=== PATIENT | female | born 1950 | race Caucasian/White ===

== ENCOUNTER 2023-10-02 15:14 | Outpatient (CLI) | payer MEDICARE, OTHER ==
--- NOTE | 2023-10-02 16:15 | XRAY Report ---
PROCEDURE: Wrist 4 View LT INDICATIONS: LEFT WRIST SPRAIN TECHNIQUE: 3 views of the wrist were acquired. COMPARISON: None. FINDINGS: Bones: Avulsion fracture of the extensor tendon insertion on the dorsal side of the DIP joint of the third finger with displacement Soft tissues: No suspicious soft tissue calcifications or masses. IMPRESSION: Displaced avulsion fracture at the extensor tendon insertion into the distal phalanx of t he middle finger Reviewed by: Pola Kemp on 10/02/2023 4:14 PM PST Approved by: Pola Kemp on 10/02/2023 4:14 PM PST Station ID: [id number]
--- NOTE | 2023-10-02 16:17 | XRAY Report ---
PROCEDURE: Sacrum/Coccyx INDICATIONS: LEFT WRIST SPRAIN,COCCYX PAIN, SPRAIN LEFT MIDDLE FINGER TECHNIQUE: 2 views of the sacrum and coccyx acquired. COMPARISON: None. FINDINGS: Bones: No fractures or dislocations. No suspicious bony lesions. Soft tissues: Visualized bowel gas pattern is normal. No suspicious soft tissue densities. IMPRESSION: No acute bony abnormality. Reviewed by: Pola Kemp on 10/02/2023 4:16 PM PST Approved by: Pola Kemp on 10/02/2023 4:16 PM PST Station ID: [id number]
--- NOTE | 2023-10-02 16:20 | XRAY Report ---
PROCEDURE: Finger(s) LT INDICATIONS: LEFT WRIST SPRAIN, COCCYX PAIN, LEFT MIDDLE FINGER SPRAIN TECHNIQUE: 3 views of the wrist were acquired. COMPARISON: None. FINDINGS: Bones: Avulsion fracture of the extensor tendon insertion on the dorsal side of the DIP joint of the third finger with displacement Soft tissues: No suspicious soft tissue calcifications or masses. IMPRESSION: Displaced avulsion fracture at the extensor tendon insertion into the distal phalanx of t he middle finger Reviewed by: Pola Kemp on 10/02/2023 4:18 PM PST Approved by: Pola Kemp on 10/02/2023 4:18 PM PST Station ID: [id number]
== END 2023-10-02 15:15 | disposition home or self-care (01) ==
LOC: DI 15:14
PROVIDERS: ATTEND Family Medicine
DX: S63.502A Unspecified sprain of left wrist, initial encounter (principal); M53.3 Sacrococcygeal disorders, not elsewhere classified; S62.633A Displaced fracture of distal phalanx of left middle finger, initial encounter for closed fracture

== ENCOUNTER 2023-10-13 08:00 | Outpatient (CLI) | payer MEDICARE, OTHER ==
--- NOTE | 2023-10-13 21:06 | XRAY Report ---
PROCEDURE: Finger(s) LT INDICATIONS: LEFT 3RD MIDDLE FINGER PAIN TECHNIQUE: AP hand, 2 views of the middle finger(s) acquired. COMPARISON: None. FINDINGS: Bones: There is a dorsal base of distal phalanx fracture involving a dorsal osteophyte, possibly rep resenting an avulsion fracture. No suspicious bony lesions. Soft tissues: No suspicious soft tissue calcifications or masses. IMPRESSION: Dorsal base of distal phalanx fracture of third finger, involving osteophyte, possibly representing a n avulsion fracture. Reviewed by: Jaime Carty MD on 10/13/2023 9:04 PM PST Approved by: Jaime Carty MD on 10/13/2023 9:04 PM PST Station ID: [id number]
== END 2023-10-13 23:59 | disposition home or self-care (01) ==
LOC: DI.WOS 08:00
PROVIDERS: ATTEND Physician Assistant Surgical
DX: S62.613A Displaced fracture of proximal phalanx of left middle finger, initial encounter for closed fracture (principal); M25.742 Osteophyte, left hand

== ENCOUNTER 2023-12-01 08:00 | Outpatient (CLI) | payer MEDICARE, OTHER ==
--- NOTE | 2023-12-01 13:04 | XRAY Report ---
PROCEDURE: Finger(s) LT INDICATIONS: LEFT 3RD FINGER FRACTURE TECHNIQUE: AP hand, 3 views of the third finger(s) acquired. COMPARISON: X-ray [birth year] 1922 FINDINGS: Bones: Stable alignment with slight interval healing of previous third PIP avulsion. No suspicious b dong lesions. Soft tissues: No suspicious soft tissue calcifications or masses. IMPRESSION: Stable alignment with slight interval healing of previous third PIP avulsion fracture. Reviewed by: Josefina Amador MD on 12/01/2023 1:03 PM [facility] Approved by: Josefina Amador MD on 12/01/2023 1:03 PM [facility] Station ID: [id number]
== END 2023-12-01 23:59 | disposition home or self-care (01) ==
LOC: DI.WOS 08:00
PROVIDERS: ATTEND Physician Assistant Surgical
DX: S62.633D Displaced fracture of distal phalanx of left middle finger, subsequent encounter for fracture with routine healing (principal)

== ENCOUNTER 2024-03-14 16:14 | Observation (INO) | payer MEDICARE, OTHER ==
[2024-03-14] MEDS ORDERED: iohexoL-300 100 ML VIAL ONE (16:23)
[2024-03-14 16:24] LABS: BASOPHILS # (AUTO) 0.1 10^3/uL (0.0-0.1); BASOPHILS % (AUTO) 0.8 %; EOSINOPHILS # (AUTO) 0.3 10^3/uL (0.0-0.7); EOSINOPHILS % (AUTO) 3.4 %; HCT - HEMATOCRIT 38.7 % (37.0-47.0); HGB - HEMOGLOBIN 11.8 g/dL (12.0-16.0); LYMPHOCYTES # (AUTO) 2.2 10^3/uL (1.5-3.5); LYMPHOCYTES % (AUTO) 25.7 %; MEAN CORPUSCULAR HGB CONC 30.5 g/dL (32.0-36.0); MEAN CORPUSCULAR VOLUME 88.6 fL (81.0-99.0); MEAN PLATELET VOLUME 10.1 fL (7.9-10.8); MONOCYTES # (AUTO) 0.8 10^3/uL (0.0-1.0); MONOCYTES % (AUTO) 8.7 %; NEUTROPHILS # (AUTO) 5.3 10^3/uL (1.5-6.6); NEUTROPHILS % (AUTO) 61.1 %; PLT - PLATELET COUNT 291 10^3/uL (130-450); RED BLOOD COUNT 4.37 10^6/uL (4.20-5.40); RED CELL DISTRIBUTION WIDTH 14.5 % (12.0-15.0); WHITE BLOOD COUNT 8.7 x10^3/uL (4.8-10.8)
--- NOTE | 2024-03-14 16:24 | ED Physician Documentation ---
PD HPI FOCAL NEURO - Stated complaint Stated Complaint: CODE STROKE - Chief complaint Chief Complaint: Neuro - History obtained from History obtained from: Patient, EMS - History of Present Illness Timing - onset: How many hours ago (1) Timing - duration: Hours (1) Timing - details: Abrupt onset Weakness: Face, Arm, Hand, Leg, Left Numbness: No: Face, Arm, Hand, Leg, Foot, Right, Left Associated symptoms: No: Headache, Nausea / vomiting, Seizure, Syncope, Fall, Head injury, Chest pain, Neck pain, Back pain, Fever Baseline status: positive: Other (Patient usually has right-sided deficits from her prior stroke.) - Additional information Additional information: Patient is a 73-year-old female who is brought to the emergency department as a "code stroke". She is brought in by EMS. Reportedly she had physical therapy today and when she was walking across the parking lot at about 315 noted that she had left-sided weakness and left-sided facial droop along with slurred speech. She has had a prior stroke in 2019. She states it was a hemorrhagic stroke and had to have surgery. She feels that the symptoms are mildly resolving at this time but still feels like she is not speaking clearly. She states that she takes 10 medications in the morning and 7 medications at night. She does not know the names or what they are for. PD PAST MEDICAL HISTORY - Past Medical History Past Medical History: Yes Cardiovascular: Hypertension, High cholesterol Neuro: CVA - Past Surgical History Past Surgical History: Yes Neuro: Craniotomy - Allergies Allergies/Adverse Reactions: Allergies Allergy/AdvReac Type Severity Reaction Status Date / Time carisoprodol [From Soma] Allergy Hives Verified 03/14/24 16:28 - Living Situation Living Situation: reports: With family Living Arrangement: reports: At home - Social History Does the pt have substance abuse?: No - Family History Family history: reports: Non contributory PD ED PE NORMAL - Vitals Vital signs reviewed: Yes - General General: Alert and oriented X 3, No acute distress - HEENT HEENT: Moist mucous membranes - Neck Neck: Supple, no meningeal sign - Cardiac Cardiac: RRR, Strong equal pulses - Respiratory Respiratory: No respiratory distress, Clear bilaterally - Abdomen Abdomen: Soft, Non tender, Non distended - Derm Derm: Warm and dry - Extremities Extremities: No edema - Neuro Neuro: Alert and oriented X 3 NIHSS - Time Time: 16:15 - Level of Consciousness Level of consciousness: (0) Alert, Keenly responsive LOC Questions: (0) Answers both Q's correct LOC Commands: (0) Performs both correctly - Gaze Best Gaze: (0) Normal - Visual Visual: (0) No loss - Facial Palsy Facial Palsy: (1) Minor paralysis - Motor Arms (both separate) Motor Arm (right): (0) No drift Motor Arm (left): (1) Drift - Motor Legs (both separate) Motor Leg (right): (1) Drift - Limb Ataxia Limb Ataxia: (0) Absent - Sensory Sensory: (0) Normal - Best Language Best Language: (0) No aphasia - Dysarthria Dysarthria: (1) Dyhn-vs-zxxtqitt dysarthria - Extinction and Inattention (formally neg Extinction and inattention: (0) No abnormality Results - Vitals Vitals: Vital Signs - 24 hr 03/14/24 03/14/24 03/14/24 16:18 16:41 16:59 Temperature 36.2 C L Heart Rate 68 62 61 Respiratory 70 H 12 17 Rate Blood Pressure 124/77 112/54 L O2 Saturation 95 98 95 Oxygen O2 Source Room air - EKG (time done) 1623 EKG releavant findings:: EKG personally interpreted by author of this note. Relevant findings are: Rate: Rate (enter#) (61) Rhythm: NSR [place]: Normal Intervals: Normal NH QRS: Normal Ischemia: Normal ST segments - Labs Labs: Laboratory Tests 03/14/24 03/14/24 03/14/24 16:16 16:16 16:16 WBC 8.7 RBC 4.37 Hgb 11.8 L Hct 38.7 MCV 88.6 MCH 27.0 MCHC 30.5 L RDW 14.5 Plt Count 291 MPV 10.1 Neut # (Auto) 5.3 Lymph # (Auto) 2.2 [place] # (Auto) 0.8 Eos # (Auto) 0.3 Baso # (Auto) 0.1 Absolute Nucleated RBC 0.00 Nucleated RBC % 0.0 PT 12.1 INR 1.1 APTT 32.0 Sodium 136 Potassium 4.0 Chloride 101 Carbon Dioxide 29 Anion Gap 6.0 BUN 15 Creatinine 1.0 Estimated GFR (MDRD) 54 L Glucose 115 H POC Whole Bld Glucose Calcium 10.2 Total Bilirubin 0.6 AST 15 ALT 19 Alkaline Phosphatase 146 H Total Protein 6.9 Albumin 4.1 Globulin 2.8 Albumin/Globulin Ratio 1.5 Lipase 28 Urine Color Urine Clarity Urine pH Ur Specific [place] Urine Protein Urine Glucose (UA) Urine Ketones Urine Occult Blood Urine Nitrite Urine Bilirubin Urine Urobilinogen Ur Leukocyte Esterase Ur Microscopic Review Urine Culture Comments 03/14/24 03/14/24 16:40 18:00 WBC RBC Hgb Hct MCV MCH MCHC RDW Plt Count MPV Neut # (Auto) Lymph # (Auto) [place] # (Auto) Eos # (Auto) Baso # (Auto) Absolute Nucleated RBC Nucleated RBC % PT INR APTT Sodium Potassium Chloride Carbon Dioxide Anion Gap BUN Creatinine Estimated GFR (MDRD) Glucose POC Whole Bld Glucose 119 H Calcium Total Bilirubin AST ALT Alkaline Phosphatase Total Protein Albumin Globulin Albumin/Globulin Ratio Lipase Urine Color YELLOW Urine Clarity CLEAR Urine pH 6.5 Ur Specific [place] <=1.005 Urine Protein NEGATIVE Urine Glucose (UA) NEGATIVE Urine Ketones NEGATIVE Urine Occult Blood NEGATIVE Urine Nitrite NEGATIVE Urine Bilirubin NEGATIVE Urine Urobilinogen 0.2 (NORMAL) Ur Leukocyte Esterase NEGATIVE Ur Microscopic Review NOT INDICATED Urine Culture Comments NOT INDICATED - Rads (name of study) head CT Relevant Findings:: Final report received, See rad report CT angio head and neck Relevant Findings:: Final report received, See rad report PD Medical Decision Making - ED course Complexity details: reviewed results, re-evaluated patient, considered differential, d/w patient, d/w cognos consultant ED course: 73-year-old female activated as a code stroke. Symptoms are improving in the emergency department. No acute findings on head CT or CT angiogram of the head and neck. Does have a 50% stenosis of the internal carotid artery. Tele- neurology was consulted. They evaluated the patient do not feel that she is a TNK candidate. I would agree with this that she is rapidly improving. They recommend starting Plavix in addition to her aspirin. Recommend admission to the hospitalist service for further stroke workup. Discussed the case with the nighttime hospitalist, who accepts. This document was made in part using voice recognition software. While efforts are made to proofread this document, sound alike and grammatical errors may occur. Departure - Departure Disposition: ED Place in Observation Clinical Impression: Cerebrovascular accident (CVA) Qualifiers: CVA mechanism: unspecified Qualified Code(s): I63.9 - Cerebral infarction, unspecified Hypertension Qualifiers: Hypertension type: unspecified Qualified Code(s): I10 - Essential (primary) hypertension Diabetes Qualifiers: Diabetes mellitus type: type 2 Diabetes mellitus jail insulin use: without jail use Condition: Stable Discharge Date/Time: 03/14/24 20:07
[2024-03-14 16:36] LABS: ALBUMIN 4.1 g/dL (3.2-5.5); ALBUMIN/GLOBULIN RATIO 1.5 (1.0-2.2); BILIRUBIN,TOTAL 0.6 mg/dL (0.2-1.0); CALCIUM 10.2 mg/dL (8.5-10.3); TOTAL PROTEIN 6.9 g/dL (6.4-8.9)
[2024-03-14 17:01] LABS: INR 1.1 (0.8-1.2); PT - PROTHROMBIN TIME 12.1 secs (9.9-12.6)
--- NOTE | 2024-03-14 17:06 | CT Report ---
PROCEDURE: Head W/O Stroke Protocol INDICATIONS: L sided weakness, h/o hemorrhagic stroke TECHNIQUE: Noncontrast 4.5 mm thick angled axial sections acquired from the foramen magnum to the vertex, with c oronal reformats. For radiation dose reduction, the following was used: automated exposure control, adjustment of mA and/or kV according to patient size. COMPARISON: None. FINDINGS: Image quality: Excellent. CSF spaces: Basal cisterns are patent. No extra-axial fluid collections. Ventricles are normal in size and shape. Brain: No midline shift. No intracranial masses or hemorrhage. [place]-white matter interface is norm al. Intracranial carotid calcifications. Age-related volume loss and moderate to severe small vessel ischemic change. Right temporal encephalomalacia. Skull and face: Remote right frontotemporal craniotomy. Calvarium and visualized facial bones are in tact, without suspicious lesions. Sinuses: Visualized sinuses and mastoids are clear. IMPRESSION: 1. No acute intracranial abnormality. 2. Remote frontotemporal craniotomy on the right. There is encephalomalacia in the right temporal lob e. 3. Age-related volume loss and small vessel ischemic change. Above discussed with Zana Krishnan MD at the time of dictation on 03/14/2024 at 1504 hours. This study fulfills neurological imaging criteria for inclusion or exclusion of acute stroke therapie s based on available published neurological imaging guidelines. Reviewed by: Jaime Carty MD on 03/14/2024 5:05 PM PDT Approved by: Jaime Carty MD on 03/14/2024 5:05 PM PDT Station ID: [id number]
[2024-03-14] MEDS: iohexoL-300 100 ML VIAL IVP ONE (17:19)
--- NOTE | 2024-03-14 17:20 | CT Report ---
PROCEDURE: Angio Head/Neck INDICATIONS: L sided weakness, h/o hemorrhagic stroke TECHNIQUE: After the administration of intravenous contrast, 1 mm thick sections acquired from the aortic arch t hrough the [place] of [place]. 3-dimensional snyyqzz-faittseiu-tbzqanubpr (MIP) and/or volume renderin g reformats were acquired of the central intracranial vasculature and neck separately. For radiation dose reduction, the following was used: automated exposure control, adjustment of mA and/or kV acco rding to patient size. CONTRAST: 80ml [id number] COMPARISON: CT head from the same date. FINDINGS: Image quality: Diagnostic. HEAD CT: CSF Spaces: Basal cisterns are patent. No extra-axial fluid collections. Ventricles are normal in size and shape. Brain: As seen on the accompanying CT, there is remote right frontotemporal craniotomy and temporal e ncephalomalacia. There is age-related volume loss and small vessel ischemic change. Skull and face: Calvarium and visualized facial bones appear intact, without suspicious lesions. Sinuses: Visualized sinuses and mastoids are clear. HEAD CT ANGIOGRAPHY: Anterior circulation: Intracranial internal carotid arteries are normal in size and flow. The flow within the paired anterior cerebral arteries is normal and symmetric. The flow within the middle cer ebral arteries is normal and symmetric. The anterior communicating artery is seen. No aneurysms are seen. Posterior circulation: Visualized portions of the vertebral arteries demonstrate normal caliber, and join to form a normal appearing basilar artery. Flow within the posterior cerebral arteries is norm al and symmetric. No aneurysms are seen. NECK CT ANGIOGRAPHY: Carotid system: The great vessels demonstrate a conventional anatomy as they arise from the aortic a [facility]. The origins of the common carotid arteries appear patent. The common carotid arteries demonstr ate normal caliber and courses. The bifurcation regions are both widely patent. There is a calcified stenosis of the proximal left internal carotid artery which is likely in the knee of 50% or greater. There is mild stenotic disease of the proximal right internal carotid artery. There is medial deviat ion of the cervical carotids at the level of C2-C3. Posterior circulation: The origins of the verteb ral arteries both appear widely patent. The more superior extracranial portions of both vertebral ar teries also demonstrate normal courses and calibers. They join to form a normal appearing basilar ar [place]. Soft tissues: Visualized neck soft tissues demonstrate no suspicious abnormalities. There are innum erable prominent bilateral cervical lymph nodes. No individual lymph nodes are clearly of size to ind icate malignancy. However, a number of these lymph nodes are rounded. There are lesions present in th e right parotid which, given the appearance of lymph nodes likely represents parotid lymphadenopathy as well. Bones: No suspicious bony lesions. Visualized cervical spine appears normally aligned. IMPRESSION: 1. No significant intracranial arterial abnormality noted. 2. A proximal left internal carotid artery stenosis is likely 50% or greater. There is no significant proximal right internal carotid artery stenosis. The cervical carotids are tortuous, and medially de viated at the level of C2-C3. 3. Extensive cervical adenopathy, nonspecific. However, consider reactive adenopathy versus possible lymphoma. Comment: Consider nonemergent imaging of the chest, abdomen, and pelvis to evaluate lymphadenopathy. The estimate of stenosis included in the report of the imaging study was calculated using the NASCET method Reviewed by: Jaime Carty MD on 03/14/2024 5:19 PM PDT Approved by: Jaime Carty MD on 03/14/2024 5:19 PM PDT Station ID: [id number]
[2024-03-14] MEDS: CLOPIDOGREL 75 MG TABLET PO STA (17:58)
[2024-03-14 18:03] LABS: BILIRUBIN,URINE NEGATIVE (NEGATIVE); GLUCOSE, URINE (UA) NEGATIVE (NEGATIVE); KETONES,URINE (UA) NEGATIVE (NEGATIVE); LEUKOCYTE ESTERASE, URINE NEGATIVE (NEGATIVE); NITRITE,URINE NEGATIVE (NEGATIVE); OCCULT BLOOD,URINE NEGATIVE (NEGATIVE); PH,URINE 6.5 PH (5.0-7.5); PROTEIN,URINE NEGATIVE (NEGATIVE); UROBILINOGEN,URINE 0.2 (NORMAL) E.U./dL (NORMAL)
[2024-03-14 18:04] LABS: CLARITY,URINE CLEAR (CLEAR)
[2024-03-14] MEDS ORDERED: LABETALOL 20 MG/4 ML SYRINGE IVP PRN (19:18)
[2024-03-14] MEDS ORDERED: ACETAMINOPHEN 325 MG TABLET PO PRN (19:23)
[2024-03-14] MEDS ORDERED: HYDROcod/ACETAM 5/325 MG TABLET PO PRN (19:23)
[2024-03-14] MEDS ORDERED: SODIUM CHLORIDE FLUSH 0.9% 10 ML SYRINGE IVP PRN (19:23)
[2024-03-14] MEDS ORDERED: ONDANSETRON 4 MG/2 ML VIAL IVP PRN (19:23)
[2024-03-14 20:05] LABS: BASOPHILS # (AUTO) 0.1 10^3/uL (0.0-0.1); BASOPHILS % (AUTO) 0.9 %; EOSINOPHILS # (AUTO) 0.4 10^3/uL (0.0-0.7); EOSINOPHILS % (AUTO) 3.8 %; HCT - HEMATOCRIT 37.6 % (37.0-47.0); HGB - HEMOGLOBIN 11.7 g/dL (12.0-16.0); LYMPHOCYTES # (AUTO) 2.3 10^3/uL (1.5-3.5); LYMPHOCYTES % (AUTO) 25.1 %; MEAN CORPUSCULAR HEMOGLOBIN 27.7 pg (27.0-31.0); MEAN CORPUSCULAR HGB CONC 31.1 g/dL (32.0-36.0); MEAN CORPUSCULAR VOLUME 88.9 fL (81.0-99.0); MEAN PLATELET VOLUME 10.2 fL (7.9-10.8); MONOCYTES # (AUTO) 0.8 10^3/uL (0.0-1.0); MONOCYTES % (AUTO) 9.1 %; NEUTROPHILS # (AUTO) 5.6 10^3/uL (1.5-6.6); NEUTROPHILS % (AUTO) 60.9 %; PLT - PLATELET COUNT 261 10^3/uL (130-450); RED BLOOD COUNT 4.23 10^6/uL (4.20-5.40); RED CELL DISTRIBUTION WIDTH 14.7 % (12.0-15.0); WHITE BLOOD COUNT 9.2 x10^3/uL (4.8-10.8)
[2024-03-14 20:11] LABS: INR 1.1 (0.8-1.2); PT - PROTHROMBIN TIME 11.4 secs (9.9-12.6)
--- NOTE | 2024-03-14 20:13 | HISTORY & PHYSICAL EXAMINATION ---
Chief Complaint - Chief Complaint Chief Complaint: Left sided weakness History of Present Illness - Admitted From Admitted From:: ED - History Obtained From History obtained from: Patient, and daughter at bedside Exam Limitations: via telehealth live video - History of Present Illness HPI Comment/Other: Mrs. Lewis is a 73 yo W with a history of hypertension, diabetes type 2, hemorrhagic stroke with residual short term memory loss, chronic back pain with neurostimulator implant. Patient was leaving physical therapy on the day of presentation. noted she was speaking in jibberish. she also had right facial drooping. Her left arm was immobile. He took her to the urgent care adjacent to the PT clinic. she was not able to bare weight on her left leg due to weakness. Upon arrival to the ED by EMS, symptoms had started to resolved. she had regain 80% of her strength back in her extremities and her speech was at baseline. she did have residual facial drooping. CT head was negative for hemorrhage, no evidence of ischemia. CTA was negative for large vessel occlusion. Teleneurology was consulted and recommended Mrs. Lewis be admitted for further stroke rule out. Due to continue improvement of symptoms she was not a tPA candidate. During my evaluation. NIHSS was 1. GCS 15. vitals signs stable. This visit was performed using real-time tele-health tools including live video for gyic-tj-cots visit. In addition to patient, her and her daughter were present during the evaluation. she provided consent to proceed with this tele-health visit and gave me permission to do so with her family members present. 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 Did not require utilization of equipment for mobility assistance. Exam - Vital Signs Reviewed Vital Signs: Yes Vital Signs: Vital Signs x48h Temp Pulse Resp BP Pulse Ox 03/14/24 19:54 59 L 18 144/93 H 99 03/14/24 16:59 61 17 112/54 L 95 03/14/24 16:41 62 12 98 03/14/24 16:18 36.2 C L 68 70 H 124/77 95 - Physical Exam General Appearance: positive: No acute distress, Alert Eyes Bilateral: positive: Normal inspection, PERRL Respiratory: positive: No respiratory distress, Breath sounds nml Cardiovascular: positive: Regular rate & rhythm, No murmur, No gallop Skin: positive: Color nml, No rash Extremities: positive: Non-tender, Full ROM, Nml appearance Neurologic/Psychiatric: positive: Oriented x3, Sensation nml, Mood/affect nml, Weakness, Facial droop. negative: Sensory loss, Slurred/abnml speech Conclusion/Plan - Problem List (1) Cerebrovascular accident (CVA) Conclusion/Plan: -Stroke vs TIA. symptoms improved. -NIHSS 1 on initial evalaution, continue with neurochecks q4h -CT,CTA reviewed independently, proceed with ECHO w/ bubble and MRI w/o contrast in the AM -PT/OT/ST consulted and pending -teleneurology consulted -continue with aspirin 81mg, initiate plavix 75mg daily, atorvastatin 80mg daily -fall and aspiration precautions as needed Qualifiers: CVA mechanism: unspecified Qualified Code(s): I63.9 - Cerebral infarction, unspecified (2) Hypertension Conclusion/Plan: -will review home regimen, and resume as tolerated -as needed IV labetolol for refractory hypertension of SBP >220 (3) Diabetes Conclusion/Plan: -hold home metformin, will resume upon discharge -continue to monitor with serial acuchecks and sliding scale coverage as needed. ACHS. Qualifiers: Diabetes mellitus type: type 2 Diabetes mellitus manager terminal insulin use: without manager terminal use - Lab Results Fish Bones: 03/14/24 16:16 03/14/24 16:16 - Diagnostic Imaging Results Diagnostic Imaging Results: positive: Final report reviewed Core Measures - Anticipated LOS I expect patient to be DC'd or transferred within 96 hours.: Yes - DVT/VTE - Prophylaxis VTE/DVT Device ordered at admit?: Yes Telemedicine Consult Details - Provider Location & Consult Time Telemedicine consultation conducted via videoconferencing?: Yes
[2024-03-14] MEDS: INSULIN REGULAR HUMAN 300 UNIT/3 ML VIAL SUBQ SCH (21:38)
[2024-03-14] MEDS: ATORVASTATIN 40 MG TABLET PO SCH (21:39)
[2024-03-15] MEDS: SODIUM CHLORIDE FLUSH 0.9% 10 ML SYRINGE IVP SCH (01:39)
[2024-03-15] MEDS: CLOPIDOGREL 75 MG TABLET PO SCH (08:54)
[2024-03-15] MEDS: ASPIRIN CHEW 81 MG TABLET PO SCH (08:54)
--- NOTE | 2024-03-15 10:39 | PHARMACY PROGRESS NOTE ---
- Best Possible Medication History Admit Date and Time: 03/14/241922 Processed by: Pharmacy Medications reviewed in ED?: No Medication History completed: Yes Patient Interview: Completed Secondary Source(s): Spouse/Significant other, Insurance records As the person ultimately responsible for medication therapy, providers are able to order a medication from an existing home medication list in [facility] via the "Reconcile Routine" prior to Confirmation of that medication by senior technical support analyst. Such practice is discouraged except when the physician, in their clinical judgment, deems that a medical need exists for a medication without regard to previous use.
[2024-03-15 12:25] LABS: ESTIMATED AVERAGE GLUCOSE 137 mg/dL (70-100); HEMOGLOBIN A1c% 6.4 % (4.27-6.07)
--- NOTE | 2024-03-15 15:20 | MRI Report ---
PROCEDURE: MRI brain without contrast INDICATIONS: Neurologic deficit TECHNIQUE: Multiplanar multisequential MR images of the brain were obtained without contrast COMPARISON: None FINDINGS: CSF Spaces: Basal cisterns are patent. No extra-axial fluid collections. Ventricles are normal in size and shape. Brain: Cystic encephalomalacia and gliosis noted involving the right temporal lobe. No evidence of a cute infarct or intracranial hemorrhage. Moderate atrophy and white matter chronic ischemic change. No evidence of mass lesion Skull and face: Calvarium has normal marrow signal. Orbits appear normal. Prior right pterional window and siding craftsman niotomy Sinuses: Sinuses and mastoids are clear. IMPRESSION: Moderate atrophy, chronic ischemic change and old right temporal lobe infarct without evidence of acu te infarct, hemorrhage or mass lesion. Reviewed by: Larry Shukla MD on 03/15/2024 2:19 PM [facility] Approved by: Larry Shukla MD on 03/15/2024 2:19 PM [facility] Station ID: [id number]
--- NOTE | 2024-03-15 16:02 | Discharge Plan ---
Discharge Plan for SNF / [facility] - Discharge Plan And Transition Orders Problem Reviewed?: Yes Disposition: 01 Home, Self Care Condition: Stable Allergies and Adverse Reactions: Allergies Allergy/AdvReac Type Severity Reaction Status Date / Time carisoprodol [From Soma] Allergy Hives Verified 03/14/24 16:28 Health Concerns: Patient presented with a TIA. Plan of Treatment: The patient will be sent home on her home dose of aspirin 81 mg daily, Plavix 75 mg daily and atorvastatin 80 mg daily. Care Goals: The patient has no deficits from her acute CVA. She will need follow-up with her primary care physician. Echocardiogram is pending at discharge and she will follow-up with her primary care physician for results. MRI was negative for an acute CVA. It did reveal evidence of her old CVA with rather extensive encephalomalacia. - SNF / [facility] Transition Orders Medicare Certification Statement: I certify that [facility] assisted care is medically necessary on a continuing basis for any of the conditions for which she/he is receiving care during hospitalization. Notify PCP of admission and forward orders to primary provider for signature. Other Notification Orders: Call PCP immediately if patient develops dyspnea, chest pain/tightness or edema. Additional Bowel Program Orders: If no BM after 2 days, nurse may give M.O.M. 30ml PO PRN and/or ducolax Supp 1 [place] and/or DANYELLE 250mg P.O., and/or senna 1-2 tabs PO. On day 3 nurse may give repeat above order until residents constipation is resolved. Medication Orders: PLEASE REFER TO THE DISCHARGE MEDICATION LIST.
--- NOTE | 2024-03-15 16:09 | Discharge Plan ---
Discharge Plan Problem Reviewed?: Yes Disposition: Home, Self Care Condition: Good Prescriptions: Clopidogrel [Plavix] 75 mg PO DAILY #30 tab Diet: Diabetic Activity Restrictions: No Restrictions Shower Restrictions: No Driving Restrictions: No Weight Bearing: Full Weight Health Concerns: Patient presented with a TIA. Plan of Treatment: The patient will be sent home on her home dose of aspirin 81 mg daily and atorvastatin 80 mg daily. Plavix 75 mg daily has been added to her regimen. Care Goals: The patient has no deficits from her acute CVA. She will need follow-up with her primary care physician. Echocardiogram is pending at discharge and she will follow-up with her primary care physician for results. MRI was negative for an acute CVA. It did reveal evidence of her old CVA with rather extensive encephalomalacia. Assessment: 1. TIA 2. 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 Hypertension 4. Hyperlipidemia 5. Type 2 diabetes 6. Moderate major depression, recurrent No Smoking: If you smoke, Please STOP! Call for help.
[2024-03-15 16:13] VITALS: BP 180/92; O2SAT 97
--- NOTE | 2024-03-15 16:17 | DISCHARGE SUMMARY ---
Discharge Summary Admit Date: 03/14/24 Discharge Date: 03/15/24 Discharging Provider: Ciarra Velasquez PA-C Primary Care Provider: Michelle Oliver PA-C Code Status: Attempt Resuscitation Condition at Discharge: Good Discharge Disposition: 01 Home, Self Care - DIAGNOSES Admission Diagnoses: 1. TIA The patient presented to the emergency room with right-sided facial droop, left lower extremity weakness and garbled speech. She had a CT scan of the brain w [facility] revealed no evidence of an acute infarct. She did have evidence of a remote frontotemporal craniotomy on the right with encephalomalacia in the right temporal lobe. She had age-related volume loss and small vessel ischemic changes noted. She was noted to have left carotid artery stenosis likely 50% or greater. She was placed in observation in the hospital. MRI of the brain did not reveal an acute infarct. Due to her history of hemorrhagic CVA her 81 mg aspirin will be changed to Plavix. At this point do not think she needs dual antiplatelet therapy due to this history. She will continue 80 mg of atorvastatin daily as well. The patient's symptoms have totally resolved and she is back to her baseline at this point. 2. 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 Her speech is now clear. She does have residual short-term memory loss from her previous CVA but according to her she is at her baseline 3. Left carotid artery stenosis Noted on CT angiography. This will need to be under surveillance in the outpatient setting 4. Cervical lymphadenopathy The patient was noted to have extensive cervical adenopathy that was rather nonspecific. Could be reactive versus possible lymphoma. The radiologist recommended nonemergent imaging of the chest abdomen and pelvis for further evaluation. This will need to be performed in the outpatient setting. 5. Hypertension She will continue metoprolol 200 mg daily and losartan 50 mg twice daily 6. Hyperlipidemia Continue atorvastatin 80 mg daily 7. Type 2 diabetes Hemoglobin A1c was stable at 6.4. She will continue resume her home dose of metformin 500 mg twice daily. 8. Moderate major depression, recurrent She will continue her home dose of escitalopram 20 mg daily 9. Chronic pain with chronic prescription opiate use The patient will resume her home dose of hydrocodone 5/325 mg 1 to 2 tablets p.o. every 6 hours as needed. 10. Neuropathy, likely diabetic She will continue her home dose of Cymbalta 60 mg daily and gabapentin 1200 mg p.o. twice daily - HPI History of Present Illness: From the admission H&P: Mrs. Lewis is a 73 yo W with a history of hypertension, diabetes type 2, hemorrhagic stroke with residual short term memory loss, chronic back pain with neurostimulator implant. Patient was leaving physical therapy on the day of presentation. noted she was speaking in jibberish. she also had right facial drooping. Her left arm was immobile. He took her to the urgent care adjacent to the PT clinic. she was not able to bare weight on her left leg due to weakness. Upon arrival to the ED by EMS, symptoms had started to resolved. she had regain 80% of her strength back in her extremities and her speech was at baseline. she did have residual facial drooping. CT head was negative for hemorrhage, no evidence of ischemia. CTA was negative for large vessel o cclusion. Teleneurology was consulted and recommended Mrs. Lewis be admitted for further stroke rule out. Due to continue improvement of symptoms she was not a tPA candidate. During my evaluation. NIHSS was 1. GCS 15. vitals signs stable. This visit was performed using real-time tele-health tools including live video for [id number] visit. In addition to patient, her and her daughter were present during the evaluation. she provided consent to proceed with this tele-health visit and gave me permission to do so with her family members present. - HOSPITAL COURSE Hospital Course: The patient was placed in observation in the hospital. A 2D echocardiogram and MRI of the brain was ordered. MRI of the brain did not reveal an acute CVA. Echocardiogram is pending at the time of discharge and will need to be reviewed by her outpatient provider at her follow-up visit. The patient's deficits have totally resolved and she is back to her baseline per her . She was initially started on Plavix along with her home dose of 81 mg aspirin and atorvastatin 80 mg daily. Since the patient's MRI is negative for any acute CVA her 81 mg aspirin will be changed to Plavix 75 mg daily. She will continue her atorvastatin. CT angiography did reveal left carotid artery stenosis that does not correspond with her symptoms. It appeared to be greater than 50% on imaging studies and follow-up surveillance is recommended. Also incidentally noted was cervical adenopathy that could be reactive. However the radiologist could not rule out lymphoma and recommended nonemergent imaging of the chest abdomen and pelvis. I will defer to her primary care provider to order this in the outpatient setting. I have discussed all of this extensively with the patient and her and all of the questions were answered. She will be discharged today in stable condition. - ALLERGIES Allergies/Adverse Reactions: Allergies Allergy/AdvReac Type Severity Reaction Status Date / Time carisoprodol [From Soma] Allergy Hives Verified 03/14/24 16:28 - MEDICATIONS Home Medications: Ambulatory Orders Medication Instructions Recorded Confirmed Alendronate [Fosamax] 70 mg PO UD 03/15/24 03/15/24 Aspirin EC [Ecotrin] 81 mg PO QPM 03/15/24 03/15/24 Atorvastatin Calcium [Lipitor] 80 mg PO QDAC 03/15/24 03/15/24 Clopidogrel [Plavix] 75 mg PO DAILY #30 tab 03/15/24 Duloxetine HCl [Cymbalta] 60 mg PO QDAC 03/15/24 03/15/24 Escitalopram Oxalate [Lexapro] 20 mg PO UD 03/15/24 03/15/24 Felodipine [Felodipine ER] 10 mg PO QDAC 03/15/24 03/15/24 Gabapentin [Neurontin] 1,200 mg PO BID 03/15/24 03/15/24 HYDROcod/ACETAM 5/325 [Gail 5/325] 1 - 2 tablet PO Q6H PRN 03/15/24 03/15/24 Losartan [Cozaar] 50 mg PO BID 03/15/24 03/15/24 Metformin HCl [Metformin ER 500 mg PO BID 03/15/24 03/15/24 Osmotic] Metoprolol Succinate [Toprol Xl] 200 mg PO DAILY 03/15/24 03/15/24 estradioL [Estradiol (Twice 0.025 mg TD UD 03/15/24 03/15/24 Weekly)] - PHYSICAL EXAM AT DISCHARGE General Appearance: positive: No acute distress, Alert Eyes Bilateral: positive: Normal inspection ENT: positive: ENT inspection nml Neck: positive: Lymphadenopathy (R), Lymphadenopathy (L). negative: No JVD Respiratory: positive: Chest non-tender, No respiratory distress. negative: Wheezes, Rales, Rhonchi Cardiovascular: positive: Regular rate & rhythm. negative: No murmur, No gallop, Tachycardia Peripheral Pulses: positive: 2+ Abdomen: positive: Non-tender, Nml bowel sounds. negative: No distention, Tenderness, Guarding, Rebound Skin: positive: Warm, Dry. negative: No rash, Skin rash Extremities: positive: Non-tender, Nml appearance Neurologic/Psychiatric: positive: Oriented x3, CN's nml (2-12), Motor nml, Sensation nml, Mood/affect nml, Other (Residual short-term memory loss from previous CVA) - LABS Result Diagrams: 03/14/24 20:00 03/14/24 16:16
[2024-03-15] MEDS ORDERED: LOSARTAN 50 MG TABLET PO SCH (21:00)
[2024-03-15] MEDS ORDERED: ATORVASTATIN 40 MG TABLET PO SCH (21:00)
[2024-03-16] MEDS ORDERED: DULoxetine 60 MG CAPSULE PO SCH (07:00)
[2024-03-16] MEDS ORDERED: ESCITALOPRAM 10 MG TABLET PO SCH (09:00)
[2024-03-16] MEDS ORDERED: METOPROLOL SUCCINATE 50 MG TABLET PO SCH (09:00)
[2024-03-16] MEDS ORDERED: amLODIPine 5 MG TABLET PO SCH (15:00)
[2024-03-16] MEDS ORDERED: ESTRADIOL 0.025 MG TOP SCH (15:08)
[2024-03-16] MEDS ORDERED: ASPIRIN EC 81 MG TABLET PO SCH (21:00)
== END 2024-03-15 16:40 | disposition home or self-care (01) ==
LOC: EDUNIT# → ED 16:14 → MS2 19:23
PROVIDERS: ADMIT Hospitalist; ATTEND Physician Assistant
DX: G45.9 Transient cerebral ischemic attack, unspecified (principal); R29.810 Facial weakness; G81.94 Hemiplegia, unspecified affecting left nondominant side; I65.22 Occlusion and stenosis of left carotid artery; I69.311 Memory deficit following cerebral infarction; R59.0 Localized enlarged lymph nodes; I10 Essential (primary) hypertension; F33.1 Major depressive disorder, recurrent, moderate; G89.29 Other chronic pain; M54.9 Dorsalgia, unspecified; E11.40 Type 2 diabetes mellitus with diabetic neuropathy, unspecified; E78.00 Pure hypercholesterolemia, unspecified; I35.8 Other nonrheumatic aortic valve disorders; Z79.02 Long term (current) use of antithrombotics/antiplatelets; Z79.82 Long term (current) use of aspirin; Z79.84 Long term (current) use of oral hypoglycemic drugs; Z79.899 Other long term (current) drug therapy; Z98.890 Other specified postprocedural states
CPT/HCPCS: 36415; 70450; 70496; 70498; 70551; 80053; 81003; 83036; 83690; 85025; 85610; 85730; 93005; 93307; 97161; 99285; A9270; G0378; J1815; Q9967; 81001; 87086